=== PATIENT | female | born 1995 | race Caucasian/White ===

== ENCOUNTER 2020-01-21 05:57 | Inpatient (IN) | payer BC, OTHER ==
[2020-01-21] MEDS ORDERED: BUTORPHANOL 1 MG/ML 1 ML VIAL IV PRN (06:41)
[2020-01-21] MEDS ORDERED: TERBUTALINE 1 MG/ML VIAL SQ PRN (06:43)
[2020-01-21] MEDS ORDERED: LIDOCAINE 0.5% (PF) 5 MG/ML (50 ML SDV) SQ PRN (06:43)
[2020-01-21] MEDS ORDERED: OXYTOCIN 10 UNIT/ML 1 ML VIAL IM PRN (06:43)
[2020-01-21] MEDS ORDERED: CARBOPROST TROMETHAMINE 250 MCG/ML 1 ML AMP IM PRN (06:43)
[2020-01-21] MEDS ORDERED: METHYLERGONOVINE 0.2 MG/ML 1 ML AMP IM PRN (06:43)
[2020-01-21] MEDS ORDERED: PENICILLIN G POTASSIUM 5,000,000 UNIT in DEXTROSE 5% IN WATER 100 ML IVPB STA ×2 (06:43)
[2020-01-21] MEDS ORDERED: OXYTOCIN 30 UNITS/500 ML NS 30 UNIT in SALINE 1 500ML.BAG IV SCH (06:45)
[2020-01-21] MEDS: LACTATED RINGERS 1,000 ML IV SCH ×3 (07:05→14:06)
[2020-01-21 07:17] LABS: Basophils % (A) 0 %; Eosinophils # (A) 0.1 k/uL (0-0.7); Eosinophils % (A) 1 %; HCT 37.6 % (34.0-46.0); HGB 12.8 gm/dL (11.4-16.0); Lymphocytes # (A) 1.7 k/uL (1.0-4.8); Lymphocytes % (A) 14 %; MCH 33.7 pg (25.0-35.0); MCV 99.1 fL (80.0-100.0); Mean Platelet Volume 9.2; Monocytes # (A) 0.7 k/uL (0-1.0); Monocytes % (A) 6 %; Neutrophils # (A) 9.1 k/uL (1.3-7.7); Neutrophils % (A) 78 %; Platelet Count 236 k/uL (150-450); RBC 3.79 m/uL (3.80-5.40); RDW 13.3 % (11.5-15.5); WBC 11.7 k/uL (3.8-10.6)
[2020-01-21] MEDS ORDERED: ROPIVACAINE 100 MG, fentaNYL (PF) 200 MCG in SODIUM CHLORIDE 0.9% 76 ML EPIDURAL ONE (09:40)
--- NOTE | 2020-01-21 10:15 | P.HPOB ---
History of Present Illness H&P Date: 01/21/20 Chief Complaint: Spontaneous rupture of membranes This is a 24-year-old 1 para 0 woman with an estimated due date of 02/02/2020 who presents at 38-2/7 weeks' gestation with spontaneous rupture of membranes at approximately 4 AM. She reports having light vaginal bleeding and cramping followed by gush of fluids. On presentation to labor and delivery triage rupture of membranes was confirmed. She was noted to be 1 cm dilated and dominique every 7-10 minutes with a reactive NST. Her has been unremarkable. She is known blood type O-. Laboratory data: Group B strep positive, blood type A-, antibody screen negative, rubella nonimmune, VDRL nonreactive, hep Kayce surface antigen negative, HIV negative, gonorrhea and clinic cultures negative, throughout glucose tolerance testing within normal limits. She received RhIg on 11/10/2019 Review of Systems All systems: negative Past Medical History Past Medical History: No Reported History History of Any Multi-Drug Resistant Organisms: None Reported Additional Past Surgical History / Comment(s): wisdom teeth removed Past Anesthesia/Blood Transfusion Reactions: No Reported Reaction Past Psychological History: No Psychological Hx Reported Smoking Status: Never smoker Past Alcohol Use History: None Reported Past Drug Use History: None Reported - Past Family History Father Family Medical History: Hypertension Medications and Allergies Home Medications Medication Instructions Recorded Confirmed Type Pnv No.95/Ferrous Fum/Folic AC 1 tab PO ONCE 01/21/20 01/21/20 History [ Multivitamin Tablet] Allergies Allergy/AdvReac Type Severity Reaction Status Date / Time No Known Allergies Allergy Verified 01/21/20 06:05 Exam Vital Signs Temp Pulse Resp BP Pulse Ox 01/21/20 07:41 97.4 F L 68 18 125/70 97 01/21/20 06:41 98.0 F 98 16 132/81 97 Intake and Output 01/20/20 01/21/20 01/21/20 22:59 06:59 14:59 Other: Weight 95.254 kg 95.254 kg Upon my initial evaluation patient is resting comfortably with an epidural anesthetic. female who is visibly gravid. Targeted physical exam is performed. Cervix is 4 cm dilated, 50% effaced with vertex in the -3 station. There is significant amount of It noted. Bedside ultrasound does confirm vertex presentation on however occiput posterior. heart tones are category 1 and she is dominique every 1-2 minutes with Pitocin augmentation. Results Result Diagrams: 01/21/20 07:03 Abnormal Lab Results - Last 24 Hours (Table) 01/21/20 Range/Units 07:03 WBC 11.7 H (3.8-10.6) k/uL RBC 3.79 L (3.80-5.40) m/uL Neutrophils # 9.1 H (1.3-7.7) k/uL Assessment and Plan (1) 38 weeks gestation of Current Visit: Yes Status: Acute Code(s): Z3A.38 - 38 WEEKS GESTATION OF SNOMED Code(s): 79964260 (2) Spontaneous rupture of membranes Current Visit: Yes Status: Acute Code(s): COY0651 - SNOMED Code(s): 209731605 (3) Rh negative, maternal Current Visit: Yes Status: Acute Code(s): O26.899 - OTH RELATED CONDITIONS, UNSPECIFIED TRIMESTER; Z67.91 - UNSPECIFIED BLOOD TYPE, RH NEGATIVE SNOMED Code(s): 371928736 (4) Rubella non-immune status, antepartum Current Visit: Yes Status: Acute Code(s): O99.89 - OTH DISEASES AND C ONDITIONS COMPL PREG/CHLDBRTH; Z28.3 - UNDERIMMUNIZATION STATUS SNOMED Code(s): 422580348 Plan: 24-year-old 1 para 0 woman with spontaneous rupture of membranes at 38- 2/7 weeks' gestation. She is receiving Pitocin augmentation of labor and group B strep prophylactic antibiotics. Of note on bedside ultrasound performed for findings of significant At the appears to be in the occiput posterior position. Reviewed this finding with the the patient and her . We will proceed with Pitocin as well as position changes to help facilitate rotation of the infant. We discussed that should the labor not proceed along the a nticipated labor curve this may be secondary to position of the that sometimes result in necessitating delivery by section. All questions were answered and status is currently reassuring.
[2020-01-21] MEDS: PENICILLIN G POTASSIUM 2,500,000 UNIT in DEXTROSE 5% IN WATER 100 ML IVPB SCH ×4 (11:11→19:09)
[2020-01-21] MEDS ORDERED: CITRIC ACID-SODIUM CITRATE 15 ML CUP PO ONE (13:47)
[2020-01-21] MEDS ORDERED: ZOLPIDEM 5 MG TAB PO PRN (14:56)
[2020-01-21] MEDS ORDERED: ONDANSETRON 4 MG/2 ML VIAL IVP PRN (14:56)
[2020-01-21] MEDS ORDERED: METOCLOPRAMIDE 5 MG/ML 2 ML VIAL IVP PRN (14:56)
[2020-01-21] MEDS ORDERED: diphenhydrAMINE 25 MG CAP PO PRN (14:56)
[2020-01-21] MEDS ORDERED: diphenhydrAMINE 50 MG/ML 1 ML VIAL IVP PRN ×2 (14:56)
[2020-01-21] MEDS ORDERED: NALOXONE 0.4 MG/ML 1 ML VIAL IV PRN ×2 (14:56→15:44)
[2020-01-21] MEDS ORDERED: ACETAMINOPHEN TAB 325 MG TAB PO PRN (14:56)
[2020-01-21] MEDS ORDERED: diphenhydrAMINE 50 MG CAP PO PRN (14:56)
--- NOTE | 2020-01-21 14:56 | P.OP ---
Date of Procedure: 01/21/20 Preoperative Diagnosis: Arrestive descent and dilatation, suspect occiput posterior position Spontaneous rupture of membranes Rh- Postoperative Diagnosis: Arrestive descent dilatation Occiput posterior Spontaneous rupture of membranes Rh- Procedure(s) Performed: Primary low transverse section Anesthesia: epidural Surgeon: Carmen Rene Tricot Knitter #1: Valeriano Rosas Estimated Blood Loss (ml): 500 IV fluids (ml): 300 Urine output (ml): 100 Pathology: none sent Condition: stable Disposition: floor Indications for Procedure: This is a 24-year-old 1 para 0 woman who presented at 38-2/7 weeks' gestation having had spontaneous rupture of membranes at home. On admission rupture of membranes was confirmed and she was irregularly dominique. She is 1 cm dilated. She was admitted and group B strep prophylactic antibiotics were initiated. Pitocin augmentation was initiated. She received Stadol analgesia and when she had progressed to 3 cm dilated she received an epidural anesthetic. Upon my initial evaluation the patient was 4 cm dilated however significant Was noted. Bedside ultrasound confirmed vertex presentation however infant was noted to be in the direct occiput posterior position. She continued to labor for several more hours however the cervix only marginally dilated further. Patient had category 2 heart tones with frequent early appearing heart rate decelerations. After several hours with no change the patient and her were counseled regarding my concern for arrest of labor secondary to occiput posterior position. There are recommended primary low transverse section and risks of the procedure were reviewed. The patient and her agreed to proceed. Operative Findings: Female infant in the direct occiput posterior position with Apgars of 8 at 1 minute and 9 at 5 minutes weighing 7 lbs. 1 oz., 3200 g. Intact, three-vessel cord placenta. Normal-appearing bilateral fallopian tubes and ovaries. Description of Procedure: After the patient's epidural was bolused she was taken to the operating room where she was positioned, prepped and draped in the dorsal supine position with a leftward tilt. Anesthetic was confirmed adequate a low transverse skin incision was made. This was carried down to the underlying fascia sharply and with the electrocautery. The fascia was incised in the midline and extended bilaterally with the Rolle scissors. The inferior and superior aspects of the fascial incision were elevated and the underlying rectus muscles dissected off sharply. The rectus muscles were then bluntly in the midline and the peritoneum was tented up and entered sharply. The peritoneal incision was extended inferiorly and superiorly with good visualization the bladder. The bladder blade was placed. The vesicouterine peritoneum was identified, tented up and entered sharply. The bladder flap was created both sharply and digitally. The bladder blade was replaced. A low transverse uterine incision was made and carried down to the underlying amniotic membranes sharply. Membranes were ruptured and clear fluid was noted. The uterine incision was extended bilaterally bluntly. The infant's head was delivered from the direct occiput posterior position without delivery. The nose and mouth were bulb suctioned and the rest the was delivered onto the field. The cord was clamped and cut. The infant was taken to the warmer for evaluation. An intact, three-vessel cord placenta was then manually removed. The uterus was ex teriorized and cleared of all clot and debris. Uterine incision was delineated using Coates clamps. Incision was closed in a running locked fashion with 0 Vicryl suture followed by second imbricating layer of the same. An additional [id number] stitch was placed for hemostasis which was then achieved. The uterus was returned to the abdomen and the gutters were cleared of all clot and debris. Uterine incision was reinspected and noted to be hemostatic. The rectus muscles, fascial edges and peritoneal edges were inspected and noted to be hemostatic. The peritoneum was reapproximated in the midline. The fascia was then closed in a running fashion with 0 Vicryl suture in halves. The subcu tissue was then copiously suction irrigated and Bovie electrocautery was utilized were necessary for hemostasis. The skin was reapproximated using 3-0 chromic. The skin was then closed in a subcutaneous fashion with 4-0 Vicryl suture. All counts reported to me as correct by the operating room staff and she did receive Pitocin following delivery of placenta. Antibiotics were given preoperatively. Both mother and infant were transported back to her room for recovery.
[2020-01-21] MEDS ORDERED: OXYTOCIN 20 UNITS/1000 ML NS 1,000 ML IV SCH (15:00)
[2020-01-21] MEDS ORDERED: LACTATED RINGERS 1,000 ML IV SCH (15:00)
[2020-01-21] MEDS ORDERED: MORPHINE SULFATE 2 MG/ML SYRINGE IVP PRN (15:44)
[2020-01-21] MEDS: KETOROLAC 15 MG/ML 1 ML VIAL IVP PRN ×2 (15:48→21:36)
[2020-01-21] MEDS ORDERED: MEASLES-MUMPS-RUBELLA VACC/PF 12,500 UNIT/0.5 ML VIAL SQ ONE (19:47)
[2020-01-21] MEDS: SENNOSIDES-DOCUSATE SODIUM 1 EACH TAB PO SCH (20:04)
[2020-01-21] MEDS ORDERED: Rhogam IMMUNE GLOBULIN 1,500 UNIT/1 ML IM ONE (21:09)
[2020-01-22] MEDS: KETOROLAC 15 MG/ML 1 ML VIAL IVP PRN ×2 (03:14→12:19)
[2020-01-22 05:58] LABS: Basophils % (A) 0 %; Eosinophils % (A) 0 %; HCT 31.6 % (34.0-46.0); HGB 10.5 gm/dL (11.4-16.0); Lymphocytes # (A) 1.4 k/uL (1.0-4.8); Lymphocytes % (A) 10 %; MCH 33.3 pg (25.0-35.0); MCHC 33.1 g/dL (31.0-37.0); MCV 100.8 fL (80.0-100.0); Macrocytosis Slight; Mean Platelet Volume 9.6; Monocytes # (A) 0.6 k/uL (0-1.0); Monocytes % (A) 5 %; Neutrophils # (A) 11.6 k/uL (1.3-7.7); Neutrophils % (A) 84 %; Platelet Count 175 k/uL (150-450); RBC 3.13 m/uL (3.80-5.40); RDW 13.4 % (11.5-15.5); WBC 13.8 k/uL (3.8-10.6)
[2020-01-22] MEDS: SENNOSIDES-DOCUSATE SODIUM 1 EACH TAB PO SCH (08:28)
--- NOTE | 2020-01-22 10:11 | P.PNOBGPC ---
Subjective - Subjective Principal diagnosis: Postop day 1 status post primary section Interval history: She is feeling very exhausted this morning but pain well controlled. Patient reports: Reports appetite normal, Reports voiding normally, Reports pain well controlled, Reports ambulating normally, Denies dizzy ambulation, Denies nauseated [place]: doing well Objective - Vital Signs Latest vital signs: Vital Signs Temp Pulse Resp BP Pulse Ox 01/22/20 08:00 98.4 F 82 16 154/87 01/22/20 05:35 16 01/22/20 04:00 98.2 F 71 16 132/83 97 01/22/20 02:00 16 01/22/20 00:00 96.8 F L 68 14 131/82 97 01/21/20 22:00 16 01/21/20 20:00 98.7 F 73 16 130/79 98 01/21/20 18:44 16 01/21/20 16:54 97.9 F 97 17 145/84 95 01/21/20 16:44 17 95 01/21/20 16:21 80 16 138/77 95 01/21/20 15:54 98.6 F 76 16 138/83 97 01/21/20 15:44 16 97 01/21/20 15:39 70 18 130/78 98 01/21/20 15:24 75 16 136/76 98 01/21/20 15:09 79 17 137/81 97 01/21/20 14:54 97.7 F 82 17 129/73 95 Intake and Output 01/21/20 01/22/20 01/22/20 22:59 06:59 14:59 Output Total 600 1100 400 Balance -600 -1100 -400 Output: Urine 600 1100 400 Uretheral (Heart) 400 Other: # Voids 1 - Exam Lungs: bilateral: normal Extremities: Present: normal, tenderness, edema Abdomen: Present: normal appearance, soft, tenderness. Absent: distention Incision: Present: normal, dry, intact, dressed Uterus: Present: normal, firm - Labs Labs: Abnormal Lab Results - Last 24 Hours (Table) 01/22/20 Range/Units 05:28 WBC 13.8 H (3.8-10.6) k/uL RBC 3.13 L (3.80-5.40) m/uL Hgb 10.5 L (11.4-16.0) gm/dL Hct 31.6 L (34.0-46.0) % MCV 100.8 H (80.0-100.0) fL Neutrophils # 11.6 H (1.3-7.7) k/uL Assessment and Plan (1) 38 weeks gestation of Current Visit: Yes Status: Acute Code(s): Z3A.38 - 38 WEEKS GESTATION OF SNOMED Code(s): 12754642 (2) Spontaneous rupture of membranes Current Visit: Yes Status: Acute Code(s): OTJ6010 - SNOMED Code(s): 663598131 (3) Rh negative, maternal Current Visit: Yes Status: Acute Code(s): O26.899 - OTH RELATED CONDITIONS, UNSPECIFIED TRIMESTER; Z67.91 - UNSPECIFIED BLOOD TYPE, RH NEGATIVE SNOMED Code(s): 186593102 (4) Rubella non-immune status, antepartum Current Visit: Yes Status: Acute Code(s): O99.89 - OTH DISEASES AND CONDITIONS COMPL PREG/CHLDBRTH; Z28.3 - UNDERIMMUNIZATION STATUS SNOMED Code(s): 923197864 (5) Occiput posterior presentation of fetus Current Visit: Yes Status: Acute Code(s): O64.0XX0 - OBSTRUCTED LABOR DUE TO INCMPL ROTATION OF HEAD, UNSP SNOMED Code(s): 82369556 (6) Failure to progress in first stage of labor Current Visit: Yes Status: Acute Code(s): BEI8556 - SNOMED Code(s): 978702242 Plan: Postop day 1 status post primary low transverse section for persistent occiput posterior position and arrest of descent and dilatation in labor. She is recovering well. Events of reviewed with her and all questions answered. Routine postoperative care.
--- NOTE | 2020-01-22 16:11 | P.PN ---
Progress Note - Text Date: 01/22/2020 Time: 1608 The patient is status post section Vital signs stable VAS: 0-10 Patient has no complaints of pain. The patient incurred some minimal itching yesterday, this itching is now subsiding. Pain meds to be managed by service.
[2020-01-22] MEDS: IBUPROFEN 600 MG TAB PO PRN ×2 (18:19→23:41)
[2020-01-23] MEDS: SENNOSIDES-DOCUSATE SODIUM 1 EACH TAB PO SCH ×2 (00:23→10:24)
[2020-01-23] MEDS: HYDROcodone/APAP 5-325MG 1 EACH TAB PO PRN ×2 (02:48→12:55)
[2020-01-23] MEDS: IBUPROFEN 600 MG TAB PO PRN (05:55)
--- NOTE | 2020-01-23 08:31 | P.DS ---
Providers Date of admission: 01/21/20 06:43 Expected date of discharge: 01/23/20 Attending physician: Luna Dockery Primary care physician: Stated None - Discharge Diagnosis(es) (1) 38 weeks gestation of Current Visit: Yes Status: Acute (2) Spontaneous rupture of membranes Current Visit: Yes Status: Acute (3) Rh negative, maternal Current Visit: Yes Status: Acute (4) Rubella non-immune status, antepartum Current Visit: Yes Status: Acute (5) Occiput posterior presentation of fetus Current Visit: Yes Status: Acute (6) Failure to progress in first stage of labor Current Visit: Yes Status: Acute Hospital Course: This is a 24-year-old 1 now para 1 woman who presented with spontaneous rupture of membranes in early active labor. Please see the history and physical for complete details. Early in her labor there was significant Formation and bedside ultrasound confirmed vertex presentation however direct occiput anterior position. She did labor with Pitocin augmentation as well as group B strep prophylactic antibiotics. She did not progress past 4 cm dilated and persistent occiput posterior position was suspected. She was counseled regarding options after several hours and did choose to proceed with primary low transverse section. Findings at the time of surgery were significant for a liveborn in the direct occiput posterior position with Apgars of 8 at 1 minute and 9 at 5 minutes weighing 3200 g. Please see the operative report for details. The patient's postoperative course was unremarkable. By postoperative day number voiding without difficulty and tolerating a general diet. Her postoperative day 1 hemoglobin was within normal limits. By postoperative day #2 she continued to do well. Her incision appeared well healing and her lochia was decreasing. She was breast-feeding successfully. Her pain was controlled with oral pain medications. She was therefore discharged home on postoperative day #2 with routine instructions for care and follow-up. Procedures: Primary low transverse section Patient Condition at Discharge: Good Plan - Discharge Summary Discharge Rx Participant: Yes New Discharge Prescriptions: New HYDROcodone/APAP 5-325MG [[place] 5-325] 1 each PO Q4HR PRN #18 tab PRN Reason: Moderate Pain No Action Pnv No.95/Ferrous Fum/Folic AC [ Multivitamin Tablet] 1 tab PO ONCE Discharge Medication List Pnv No.95/Ferrous Fum/Folic AC [ Multivitamin Tablet] 1 tab PO ONCE 01/21/20 [History] HYDROcodone/APAP 5-325MG [[place] 5-325] 1 each PO Q4HR PRN #18 tab 01/23/20 [Rx] Follow up Appointment(s)/Referral(s): Luna Dockery MD [STAFF PHYSICIAN] - 2 Weeks Activity/Diet/Wound Care/Special Instructions: Follow-up in 2 weeks after surgery in the office. Call the office with any concerning signs or symptoms including fever greater than 101, severe abdominal pain, heavy vaginal bleeding, signs of wound infection, increased swelling or redness of the lower extremities, signs of depression. No driving for 2 weeks after surgery. No heavy lifting or vigorous activity until reevaluated in the office. No intercourse for 6 weeks after delivery. Discharge Disposition: HOME SELF-CARE
[2020-01-23 10:31] VITALS: RESP 18
[2020-01-23] MEDS: PENICILLIN G POTASSIUM 2,500,000 UNIT in DEXTROSE 5% IN WATER 100 ML IVPB SCH ×2 (10:36)
[2020-01-23 16:03] VITALS: BP 135/74; PULSE 78; TEMP 98.9
--- NOTE | 2020-01-24 11:32 | P.MSEPDOC ---
Presenting Problems - Arrival Data Date of Arrival on Unit: 01/21/20 Time of Arrival on Unit: 06:41 Mode of Transport: Ambulatory - Complaint OB-Reason for Admission/Chief Complaint: Rule Out SROM Medical History - Information : 1 Para: 0 Term: 0 : 0 Abortions: Spontaneous or Elective: 0 Number of Living Children: 0 - Gestational Age Gestational Age by CINDY (wks/days): 38 Weeks and 2 Days - History Complications: GBS+ Review of Systems - Review of Systems Constitutional: No problems Breast: No problems ENT: No problems Cardiovascular: No problems Respiratory: No problems Gastrointestinal: No problems Genitourinary: No problems Musculoskeletal: No problems Neurological: No problems Skin: No problems Vital Signs - Temperature Temperature: 98.9 F Temperature Source: Oral - Pulse Right Brachial Pulse Rate: 78 Pulse Assessment Method: Pulse Oximetry - Respirations Respiratory Rate: 18 Oxygen Delivery Method: Room Air O2 Sat by Pulse Oximetry: 96 - Blood Pressure Right Arm Blood Pressure: 135/74 Blood Pressure Mean: 94 Blood Pressure Source: Automatic Cuff Medical Screen Scoring (Pre) - Cervical Exam Dilation: 1-3 cm = 1 Membranes: Ruptured = 3 - Uterine Contractions Frequency: > 5 minutes apart = 1 Duration: > 40 seconds = 2 Intensity: N/A - Maternal Vital Signs Maternal Temperature: N/A Maternal Blood Pressure: N/A Signs of Preeclampsia: N/A Maternal Respirations: N/A - Maternal Trauma Maternal Trauma: N/A - Assessment - Baby A Baseline FHR: 130 Heart Rate - NICHD Category: Category I (Normal) = 0 NST: Reactive Position: N/A Station: N/A - Total Score - Baby A Total Score - Baby A: 7 - Total Score - Baby B Total Score - Baby B: 7 - Total Score - Baby C Total Score - Baby C: 7 - Level of Risk - Baby A Level of Risk - Baby A: Medium (6-9) - Level of Risk - Baby B Level of Risk - Baby B: Medium (6-9) - Level of Risk - Baby C Level of Risk - Baby C: Medium (6-9) Physician Notification (Pre) - Physician Notified Physician Notified Date: 01/21/20 Physician Notified Time: 06:41 New Order Received: Yes - Notification Comment Comment: Dr. Hurtubise given report on pt. Pt c/o. SROM of clear fluid. Positive. amnisure. Vag exam of 1.5/60/-3. Contractions q6-7 minutes. Reactive NST. GBS POS. VS. WNL. Order recieved to admit pt. To administer Pen G for GBS POS. To administer. oxytocin. Pt may have stadol 1mg q2hrs PRN for labor pain. Disposition - Disposition OB Disposition: Admit, LDRP Suite Discharge Date: 01/23/20 Discharge Time: 17:00 I agree with the RN Medical Screening Exam: Yes Risk & Benefit of care provided described in d/c instruction: Yes Diagnosis: LOUSE-BORNE TYPHUS
== END 2020-01-23 17:00 | disposition home or self-care (01) | DRG 788 ==
LOC: FBPOP 05:57 → 4FBP 06:43
PROVIDERS: ADMIT Obstetrics & Gynecology; ATTEND Obstetrics & Gynecology
PROC: 10D00Z1 Extraction of Products of Conception, Low, Open Approach (ICD-10-PCS; principal; 2020-01-21 14:24)
DX: O26.893 Other specified pregnancy related conditions, third trimester (principal); O62.2 Other uterine inertia; O76 Abnormality in fetal heart rate and rhythm complicating labor and delivery; Z37.0 Single live birth; Z3A.38 38 weeks gestation of pregnancy; Z28.3 Underimmunization status; Z82.49 Family history of ischemic heart disease and other diseases of the circulatory system
CPT/HCPCS: 59025; 84112; 85025; 85461; 86850; 86870; 86880; 86900; 86901; 90707; 99213

== ENCOUNTER 2022-08-19 07:15 | Day surgery (SDC) | payer BC, OTHER ==
[2022-08-14 11:38] VITALS: BMI 29.9
[2022-08-19] MEDS: LACTATED RINGERS 1,000 ML IV SCH ×2 (07:25→07:53)
[2022-08-19 07:28] VITALS: TEMP 97.3
[2022-08-19] MEDS ORDERED: LIDOCAINE 2% INJ 20 MG/ML (2 ML VIAL) ONE (07:54)
[2022-08-19] MEDS ORDERED: PROPOFOL 10 MG/ML 20 ML VIAL IV ONE (07:54)
--- NOTE | 2022-08-19 08:19 | P.PCN ---
Date of Procedure: 08/19/22 Procedure(s) Performed: Brief history: Patient is a pleasant 26-year-old white female scheduled for an elective upper endoscopy as well as colonoscopy as a part of evaluation of lower abdominal pain, epigastric pain and alternating diarrhea and constipation for the last 5 years duration Procedure performed: Esophagogastroduodenoscopy with biopsy Colonoscopy Preoperative diagnosis: Abdominal pain Change in bowel habits Anesthesia: MAC Procedure: After informed consent was obtained from the patient was brought into the endoscopy unit and IV sedation was administered by anesthesia under continuous monitoring. Initially upper endoscopy was done. The Olympus GF 160 video endoscope was inserted inserted into the mouth and esophagus intubated without any difficulty and was gradually advanced into the stomach and duodenum and carefully examined. The bulb and second part of the duodenum appeared normal. biopsies were done from the duodenum to rule out celiac disease. The scope was then withdrawn into the stomach adequately insufflated with air and upon careful examination the antrum had mild gastritis and biopsies were done from this area. Mucosa of the body, cardia and fundus appeared normal. The scope was then withdrawn into the esophagus. The GE junction was located at 40 cm to the incisors. It appeared regular with no erythema erosions or ulcerations. Rest of the esophagus appeared normal. Patient tolerated the procedure well. At this time the patient continued to remain sedation. Initial digital rectal examination was normal. Olympus CF 160 video colonoscope was then inserted into the rectum and gradually advanced to the cecum without any difficulty. Careful examination was performed as the scope was gradually being withdrawn. The prep was excellent. terminal ileum was intubated and 20 cm visualized and appeared normal. The cecum, ascending colon, transverse colon, descending colon, sigmoid colon and rectum appeared normal. Retroflexion was performed in the rectum and no lesions were noted. Patient tolerated the procedure well. Impression: 1. Upper endoscopy revealed mild antral gastritis but no evidence of esophagitis or peptic ulcer disease 2. Colonoscopy was within normal limits with no evidence of colitis or colorectal neoplasia Recommendations: Findings of this examination were discussed with the patient as well as her family. She was advised to follow with the biopsy results. Recommend a high- fiber diet and fiber supplements a regular basis
[2022-08-19 08:39] VITALS: BP 122/77; PULSE 81; RESP 14
== END 2022-08-19 08:58 | disposition home or self-care (01) ==
LOC: ORWHC2ENDO 07:15
PROVIDERS: ATTEND Internal Medicine Gastroenterology
DX: K29.50 Unspecified chronic gastritis without bleeding (principal); Z98.891 History of uterine scar from previous surgery; Z79.899 Other long term (current) drug therapy
CPT/HCPCS: 81025; 88305; 45378; 43239; J2704; J2001